=== PATIENT | male | born 1995 | race Two or more races ===

== ENCOUNTER 2024-07-28 20:23 | Emergency (ER) | payer OTHER ==
[~2024-07-28] VITALS: Ht 167.6 cm; Wt 81.6 kg
[2024-07-28 20:34] VITALS: BP 125/89; O2SAT 99
[2024-07-28] MEDS ORDERED: ONDANSETRON HCL 2 MG/ML VIAL IV ONE (21:00)
[2024-07-28] MEDS ORDERED: 0.9 % SODIUM CHLORIDE 1,000 ML IV ONE (21:00)
[2024-07-28] MEDS ORDERED: MORPHINE SULFATE 4 MG/ML CARTRIDGE IV ONE (21:00)
[2024-07-28] MEDS ORDERED: FAMOtidine 10 MG/ML (4ML VIAL) IV ONE (21:00)
[2024-07-28] MEDS ORDERED: TAMSULOSIN HCL 0.4 MG CAP PO ONE (21:15)
[2024-07-28 21:26] LABS: HEMATOCRIT 45.1 % (39.0-48.0); HEMOGLOBIN 15.5 g/dL (13-16.00); MEAN CELL VOLUME 88.7 fL (80.0-100.00); MEAN CORPUSCULAR HEMOGLOBIN 30.5 pg (27.00-32.0); MEAN CORPUSCULAR HGB CONC 34.4 g/dl (32.0-36.0); PLATELET COUNT 200 K/uL (150-450); RED BLOOD COUNT 5.08 M/uL (4.00-6.00); RED CELL DISTRIBUTION WIDTH 13.2 % (11.5-14.5)
[2024-07-28 21:50] LABS: INR 1.01; PARTIAL THROMBOPLASTIN TIME 25.3 SECONDS (22.0-34.0)
[2024-07-28 21:54] LABS: ALBUMIN 4.4 gm/dL (3.4-5.0); BILIRUBIN TOTAL 0.43 mg/dL (0.3-1.2); CALCIUM 9.1 mg/dL (8.5-10.1); CREATININE SERUM 1.32 mg/dL (0.70-1.30); GFR 63.68; GLOBULINA 3.2 G/DL (2.4-3.5); POTASSIUM 3.54 mEq/L (3.5-5.1); TOTAL PROTEIN 7.6 gm/dL (6.4-8.2)
[2024-07-28 23:25] LABS: PH,URINE 5.5 (5.0-8.0); URINE APPEARANCE Clear; URINE BILIRRUBIN Negative (NEGATIVE); URINE BLOOD Large; URINE COLOR Yellow; URINE GLUCOSE Negative (NEGATIVE); URINE KETONE Trace (NEGATIVE); URINE LEUKOCYTE Negative; URINE NITRATE Negative; URINE PROTEIN Negative (NEGATIVE)
[2024-07-28 23:29] LABS: URINE BACTERIA 18.8 uL (0.0-1933); URINE RBC 308.2 uL (0.0-20.8); URINE WBC 2.9 uL (0.0-23.2)
[2024-07-28 23:34] LABS: URINE EPITHELIAL CELLS 0.4 uL (0.0-38.8)
[2024-07-29] MEDS ORDERED: TAMS0.4C PO (00:13)
[2024-07-29] MEDS ORDERED: PEPCID AC20 MG PO (00:13)
[2024-07-29] MEDS ORDERED: BACTRIM DS TAB1 EACH PO (00:13)
== END 2024-07-29 00:21 | disposition home or self-care (01) ==
LOC: ER 20:25
PROVIDERS: General Practice
DX: R10.9 Unspecified abdominal pain (principal)
CPT/HCPCS: 36415; 74177; Q9965